=== PATIENT | female | born 1960 | race Caucasian/White ===

== ENCOUNTER 2020-07-05 | Emergency (ER) | payer OTHER, BC ==
[2020-07-05] MEDS ORDERED: NAPROXEN500 MG PO (12:54)
== END 2020-07-05 13:10 | disposition home or self-care (01) | DRG 605 ==
DX: S90.111A Contusion of right great toe without damage to nail, initial encounter (principal); S80.212A Abrasion, left knee, initial encounter; S83.92XA Sprain of unspecified site of left knee, initial encounter; W18.09XA Striking against other object with subsequent fall, initial encounter; Y93.89 Activity, other specified